=== PATIENT | male | born 1950 | race Caucasian/White ===

== ENCOUNTER → 2022-10-13 10:12 | Outpatient (BNVA) | payer MEDICARE, SELFPAY | PROVIDERS: Family Provider Nurse Practitioner Family; PCP Nurse Practitioner Family; Visit Provider Internal Medicine Cardiovascular Disease | DX: R06.02 Shortness of breath (principal); I11.0 Hypertensive heart disease with heart failure; I50.9 Heart failure, unspecified; R94.31 Abnormal electrocardiogram [ECG] [EKG]; R55 Syncope and collapse; M79.89 Other specified soft tissue disorders; F17.200 Nicotine dependence, unspecified, uncomplicated | CPT/HCPCS: 36415; 80048; 83880; 93005; 99205 ==

== ENCOUNTER → 2022-11-17 15:15 | Outpatient (BNVA) | payer MEDICARE, SELFPAY | PROVIDERS: Family Provider Nurse Practitioner Family; PCP Family Medicine; Visit Provider Family Medicine | DX: R06.02 Shortness of breath (principal); I50.9 Heart failure, unspecified | CPT/HCPCS: 71046; 80048; 83880 ==

== ENCOUNTER 2022-11-18 08:56 | Outpatient (CLI) | payer MEDICARE, SELFPAY ==
--- NOTE | 2022-11-18 09:30 | USCV_ITS ---
Payam Mcneil Age: 71 Gender: M : 1950 Exam Date: 11/18/2022 09:16 Ordering Phys: Rodolfo Fraser MD ([email or web address]) Technologist: Alex Molina Exam Location: [facility] – [place] Indication: CHF BP: 102 / 52 HR: 80 Rhythm: Sinus Technical Quality: Adequate MEASUREMENTS (Male / Female) Normal Values 2D ECHO LV Diastolic Diameter PLAX 2.5 cm 4.2 - 5.9 / 3.9 - 5.3 cm LV Systolic Diameter PLAX 1.3 cm IVS Diastolic Thickness 1.3 cm 0.6 - 1.0 / 0.6 - 0.9 cm IVS Systolic Thickness 1.3 cm LVPW Diastolic Thickness 1.7 cm 0.6 - 1.0 / 0.6 - 0.9 cm LVPW Systolic Thickness 1.4 cm LVOT Diameter 2.0 cm LV Ejection Fraction 2D Teich 84.2 % LV Ejection Fraction MOD 2C 78.4 % LV Ejection Fraction 2C AL 78.8 % LA Diameter 3.3 cm LA Width 3.0 cm LA Height 5.0 cm RA Width 4.7 cm RA Height 5.7 cm Aorta at Sinotubular Diameter 2.7 cm IVC Diameter 2.2 cm M-MODE Aortic Annulus Diameter 3.6 cm LA Ao Ratio MM 0.9 MV E Point Septal Separation 0.7 cm DOPPLER AV Peak Velocity 131.0 cm/s LVOT Peak Velocity 89.0 cm/s AV Area Cont Eq vti 2.1 cm squared AV Area Cont Eq pk 2.2 cm squared MV Peak Velocity 76.0 cm/s MV Area PHT 7.6 cm squared Mitral E to A Ratio 0.6 MV E' Velocity 22.0 cm/s Mitral E to MV E' Ratio 5.0 Mitral E to LV E' Lateral Ratio 4.2 Mitral E to LV E' Septal Ratio 6.2 TR Peak Velocity 416.0 cm/s TR Peak Gradient 69.2 mmHg TR Mean Velocity 275.5 cm/s TR Mean Gradient 33.5 mmHg TR Velocity Time Integral 124.1 cm Right Atrial Pressure 8.0 mmHg Pulmonary Artery Systolic Pressu 77.2 mmHg PV Peak Velocity 77.3 cm/s RV Acceleration Time 0.1 s RV Ejection Time 0.3 s RV AcT/ET 0.3 FINDINGS Left Ventricle Normal left ventricular size and systolic function, EF 75 %. Mild left ventricular hypertrophy. Paradoxical septal motion. Grade I/IV diastolic dysfunction (abnormal relaxation filling pattern), normal to mildly elevated filling pressures. Right Ventricle Moderately increased right ventricular size. Moderately decreased right ventricular systolic function. Right Atrium Mildly increased right atrial size. Left Atrium Normal left atrial size. Mitral Valve Trace mitral valve regurgitation. Aortic Valve Thickened aortic valve. Tricuspid Valve Moderate tricuspid valve regurgitation. Moderately severe pulmonary hypertension with estimated pulmonary artery peak systolic pressure of 77 mmHg and a mean pressure of 44 mmHg Pulmonic Valve Mild pulmonary valve regurgitation. Pericardium Normal pericardium without effusion. Aorta Normal ascending aorta dimension. IVC Dilated IVC with normal respiratory variation. CONCLUSIONS Normal left ventricular size and systolic function, EF 75 %. Mild left ventricular hypertrophy. Paradoxical septal motion . grade I/IV diastolic dysfunction (abnormal relaxation filling pattern), normal to mildly elevated filling pressures. Moderately severe pulmonary hypertension with estimated pulmonary artery peak systolic pressure of 77 mmHg and a mean pressure of 44 mmHg. Features may suggest cor pulmonale Moderate tricuspid valve regurgitation. Trace mitral valve regurgitation. Moderately increased right ventricular size. Moderately decreased right ventricular systolic function. Mildly increased right atrial size. There is no pericardial effusion. There are no intracardiac masses. No previous study is available for comparison. Dr Rodolfo Fraser MD [facility] (Electronically Signed) Final Date: 23 November 2022 10:11 S
== END 2022-11-18 08:57 | disposition home or self-care (01) ==
PROVIDERS: PCP Family Medicine; Visit Provider Internal Medicine Cardiovascular Disease
DX: I50.9 Heart failure, unspecified (principal); R06.09 Other forms of dyspnea; I27.20 Pulmonary hypertension, unspecified; I08.1 Rheumatic disorders of both mitral and tricuspid valves
CPT/HCPCS: 93306